=== PATIENT | male | born 1940 | race Caucasian/White ===

== ENCOUNTER 2017-02-04 05:06 | Inpatient (IN) | payer MEDICARE, BC ==
[2017-01-23 14:40] LABS: HEMATOCRIT 46.7 % (40.0-51.0); HEMOGLOBIN 15.8 g/dL (13.6-17.8); MEAN CORPUS HGB CONC 33.8 g/dL (32.0-36.0); MEAN CORPUSCULAR HEMOGLOB 29.1 pg (26.0-34.0); MEAN PLATELET VOLUME 12.6 fL (9.2-13.0); PLATELET COUNT 124 10/3/uL (150-400); RBC DISTRIBUTION WIDTH 14.2 % (12.0-16.0); RED CELL COUNT 5.43 10/6/uL (4.7-6.1)
[2017-01-23 14:42] LABS: MANUAL DIFF YES %
[2017-01-23 14:51] LABS: INTERNATIONAL NORMAL RATI 1.1 UNITS (-); PROTIME (NOT ORD) 13.9 SEC (12.0-14.5)
[2017-01-23 14:57] LABS: A/G RATIO 1.3 (0.7-1.9); ALBUMIN 3.7 G/DL (3.5-5.0); ALKALINE PHOSPHATASE 171 U/L (45-117); BUN (BLOOD UREA NITROGEN) 22 MG/DL (6-23); CALCIUM, SERUM 8.7 MG/DL (8.5-10.4); CHLORIDE, SERUM 105 MMOL/L (96-112); CO2 (CARBON DIOXIDE) 24 MMOL/L (24-34); CREATININE 1.15 MG/DL (0.70-1.30); GFR AFRICAN AMERICAN 70 ML/MIN (>=60); GFR NON AFRICAN AMERICAN 61 ML/MIN (>=60); GLOBULIN 2.9 G/DL (2.5-4.1); GLUCOSE, SERUM 347 MG/DL (60-99); POTASSIUM, SERUM 4.5 MMOL/L (3.5-5.3); SGOT(AST) 17 U/L (5-40); SGPT(ALT) 23 U/L (5-65); SODIUM, SERUM 142 MMOL/L (135-148); TOTAL BILIRUBIN 0.8 MG/DL (0-1.2); TOTAL PROTEIN 6.6 G/DL (6.0-8.5)
[2017-01-23 15:05] LABS: ASCORBIC ACID (UR NOT ORDER) NEG (NEG); BILIRUBIN, URINE NEGATIVE (NEG); KETONE, URINE NEGATIVE (NEG); LEUKOCYTE ESTERASE(NOT OR NEG (NEG); WBC (NOT ORDERED) (RFLEX) < 1 (0-5)
[2017-01-23 15:42] LABS: EOSINOPHILS 2 %; LYMPHOCYTES 64 %; MONOCYTES 3 %; SEGMENTED NEUTROPHIL (0) 31 %; TOTAL NUCLEATED CELLS 100
[2017-01-23 15:43] LABS: PLATELET ESTIMATE SLT DEC (ADEQUATE); RBC MORPHOLOGY NORM (NORMAL)
--- NOTE | ~2017-02-04 | DS ---
Discharge Summary [facility] [address] [place]. [address] NAME: Dulce ANTON JR : 36 STATUS : DIS IN PAT#: [id number] AGE: 76 ADM/REG DATE : 02/04/17 MR#: [id number] REPORT SERV DATE: 02/14/17 DICTATED BY: GURMEET SEALS DATE: 02/13/17 REPORT STATUS : Draft TRANSCRIBED BY: EMELY DATE: 02/13/17 Data Collection from hospitalization DISCHARGE DIAGNOSES: 1. Severe right hip degenerative joint disease. 2. Diabetes mellitus. 3. Chronic lymphocytic leukemia. 4. Obstructive sleep apnea. CONSULTATIONS: None. PROCEDURES PERFORMED: Uncemented total hip arthroplasty Tri-Lock 02/04/2017. PATHOLOGY: Right femoral head arthroplasty. No evidence of an infectious or neoplastic process. MEDICATIONS: Colace 100 mg twice daily, Pepcid 20 mg twice daily, ferrous sulfate 300 mg with breakfast and supper, Lantus SoloSTAR 20 units before supper, Theragran tablet without minerals one with breakfast, Flomax 0.4 mg at 1800 hours, Coumadin as directed, Mylanta 30 mL as needed, Dulcolax 15 mg as needed, [place] 7.5/325 one every 4 hours as needed, milk of magnesia 30 mL as needed, Zofran 4 mg every four hours as needed, MiraLAX powder one packet twice daily as needed, and Metaglip one before breakfast. CONDITION AT DISCHARGE: Upon discharge, he did appear to be doing well and had no complaints. DISPOSITION: He had been discharged with transfer to [facility] in [place], [place], to continue an 1800-calorie ADA diet with activity as discussed. He was to follow up as directed. HOSPITAL COURSE: This 76-year-old male who has leukemia was seen in the clinic with complaints of [id number] constant right hip pain for 5 years which was the approximate date of onset. He stated that his pain was not due to an accident or injury. He does use the cane as an assistive device. The location of his hip pain was anterior and in the groin and posterior. His symptoms included weakness, giving way, pain, stiffness, and radiation. His pain was intensified with activity. His history and treatment included heat with relief and Aleve with relief. He denied any prior physical therapy or injections. He was now admitted for surgery and further treatment. Upon admission to the hospital, he had been taken to the operating room where he did undergo the above procedure. He had tolerated this well and was transferred to the recovery room. On postop day 1, he did state that he did not feel well and had complaints of nausea and dizziness. He was afebrile and his vital signs were stable. His INR was at 1.4. He had been evaluated by Physical Therapy. On postop day 2, his WBCs were at 42.5, hemoglobin 9.2, and hematocrit 27.6. He was continued on his current medications. On postop day 3, he did remain in stable condition and had continued with physical therapy. He had no new complaints noted and was then discharged with the above instructions. Information collected by: Gio BritoIGaurav Discharge Summary [address] [place]. [address] NAME: DESENADulce JR : 36 STATUS : DIS IN PAT#: [id number] AGE: 76 ADM/REG DATE : 02/04/17 MR#: [id number] REPORT SERV DATE: 02/14/17 DICTATED BY: GURMEET SEALS DATE: 02/13/17 REPORT STATUS : Draft TRANSCRIBED BY: EMELY DATE: 02/13/17 I submit the above information as my discharge summary. DOUG/EMELY Shu Seals M.D. / [id number] CC: Gregoria Beaulieu MD [facility]
--- NOTE | ~2017-02-04 | OP ---
Record Of Operation [facility] [address] [place]. [address] NAME: Dulce ANTON JR : 36 STATUS : ADM IN PAT#: [id number] AGE: 76 ADM/REG DATE : 02/04/17 MR#: [id number] REPORT SERV DATE: 02/05/17 DICTATED BY: GURMEET SEALS DATE: 02/05/17 REPORT STATUS : Draft TRANSCRIBED BY: EMELY DATE: 02/05/17 DATE OF PROCEDURE: 02/04/2017 PREOPERATIVE DIAGNOSIS: Severe right hip degenerative joint disease. POSTOPERATIVE DIAGNOSIS: Severe right hip degenerative joint disease. PROCEDURE: Uncemented total hip arthroplasty, Tri-Lock. SIDE: Right MILK HAULER: ANESTHESIA: See chart. SIZE: See chart. ESTIMATED BLOOD LOSS: About 100 mL. INDICATIONS FOR SURGERY: PROCEDURE IN DETAIL: The patient was taken to the operating room and placed supine on the table without incident. Anesthetic was induced per the anesthesiologist. A Marquez catheter was placed by the nurse in the standard sterile technique. The correct side for the procedure was identified by preoperative markings and matched with the consent form. All personnel in the room were in agreement regarding the procedure, patient, and side. The patient was then carefully positioned and carefully padded and prepped and draped in the normal sterile fashion. The patient received prophylactic preoperative antibiotics at the appropriate time. The preoperative x-ray was brought up on the monitor. Again, this was reviewed with the staff in the room. According with the preoperative plan, and angled, an anterolateral incision was made centered over the trochanter extending from proximal posterior to distal anterior. Electrocautery was used to maintain meticulous hemostasis. The IT band was split in line with its fibers. A Charnley retractor was placed over saline moistened laps. A standard anterolateral approach to the hip was carried out dissecting in line with the vastus medialis fibers lifting the inferior 20% of the vastus medialis, proximally the interior 20% of the gluteus medius and gluteus minimus tendons off the anterior capsule. Periosteal elevator was used to elevate soft tissue gently directly off the proximal anterior femoral bone. Appropriate retractors were carefully placed. Complete anterior capsulectomy was performed. The hip was then carefully dislocated with a combination of traction maneuver by the budget assistant and scooping the ball out of the socket with a Hohmann. A femoral neck osteotomy was marked according to what had been preoperatively planned with a broach as a template. The distance for the femoral neck osteotomy was measured with a ruler. A femoral neck osteotomy was made with an oscillating saw under appropriate retraction. Meticulous hemostasis was again obtained. The leg was then brought up out of the anterior bag and Record Of Operation [facility] [id number] [place]. [address] NAME: Dulce ANTON : 38 STATUS : ADM IN PAT#: [id number] AGE: 76 ADM/REG DATE : 02/04/17 MR#: [id number] REPORT SERV DATE: 02/05/17 DICTATED BY: GURMEET SEALS DATE: 02/05/17 REPORT STATUS : Draft TRANSCRIBED BY: EMELY DATE: 02/05/17 positioned with the lower extremity in external rotation and slight flexion. Acetabular retractors were placed carefully palpating to be sure that they were directly on the bone. The acetabular labrum was excised with electrocautery and rongeur. Pulvinar fat was removed with a large curette and rongeur and again meticulous hemostasis was obtained. Sequential reamers were used in the acetabulum to 1 mm. less than the final size which was chosen. This was felt to give excellent interference fit. The acetabular fossa was then copiously irrigated with pulsatile lavage and actual acetabular component was placed and impacted and checked to make sure it was down snug. The overall alignment was checked. The acetabular elastic tape inserter was then removed. Screws were placed in the standard fashion. A drill, depth gauge and self tapping screw placement taking care not to plunge as the drill holes were carefully placed. A trial liner was then placed and attention directed back to the proximal femur. The leg was placed back into the anterior bag. The proximal femur was prepared using a box chisel following by a T-handled reamer to determine the intramedullary alignment. This was followed by sequential broaches up to the final broach. Once it was seated in the appropriate position, a Calcar reamer was used to plane the proximal femur. Trial reduction was then done with a trial prosthetic ball and neck. A straight edge was used to compare the tip of the trochanter to center of the ball relationship to what had been noted on the preoperative x-ray. Careful reduction was then done of the total hip. Palpation was done to ascertain and compare leg lengths by palpating the nonoperative leg and also by checking soft tissue tension. The stability of the hip was checked in full extension with full external rotation and in full flexion with adduction, flexion and internal rotation. The hip was then re-dislocated with a bone hook. The femoral trial and femoral broach were removed. The acetabulum was then prepared under appropriate retraction by removing the trial liner. A central hole eliminator was placed and tightened. The shell was irrigated out. The actual insert was placed and impacted and then checked to be sure it was down snug with a joker. The leg was again positioned in the bag. The proximal femur exposed, irrigated and the actual thermal prosthesis was taken from the credit and collections representative and impacted. Once it was down, the trunnion was cleansed with a wet and dry lap and the prosthetic thermal head was placed and impacted and checked to be sure it was down snug. The acetabulum was irrigated and reduction was obtained. Again, we checked soft tissue tension, leg length and stability as described above. The hip was closed in a layered fashion with a 5 mm. Mersilene tape placed through a single drill hole in the proximal anterior/superior trochanter reattaching the gluteus medius and minimus fibers. The vastus lateralis, gluteus medius, and gluteus minimus were then closed in a sleeve. Drain was placed between the vastus and the IT band exiting distally anteriorly. The IT band was closed. Subcutaneous closure and skin closure were then obtained. A sterile dressing was applied. The patient was carefully positioned into a supine position and then awakened. The patient was then carefully transferred to the stretcher to be returned to the postoperative care unit without incident. COMPLICATION: None. SPECIMENS: Right femoral head. Record Of Operation [address] [place]. [address] NAME: Dulce ANTON JR : 36 STATUS : ADM IN [facility]#: [id number] AGE: 76 ADM/REG DATE : 02/04/17 MR#: [id number] REPORT SERV DATE: 02/05/17 DICTATED BY: GURMEET SEALS DATE: 02/05/17 REPORT STATUS : Draft TRANSCRIBED BY: MODLucretia DATE: 04/26/17 WTB/MODL Shu Seals M.D. / [id number] CC: Gregoria Beaulieu MD
[~2017-02-04 05:06] MED LIST: LANTUSCART SC; METAGLIP1 TA1 PO; T PO
[2017-02-05 05:41] LABS: HEMATOCRIT 33.9 % (40.0-51.0); HEMOGLOBIN 11.1 g/dL (13.6-17.8)
[2017-02-05 05:45] LABS: INTERNATIONAL NORMAL RATI 1.4 UNITS (-)
[2017-02-05 05:46] LABS: PROTIME (NOT ORD) 16.9 SEC (12.0-14.5)
[2017-02-05 05:51] LABS: CALCIUM, SERUM 8.1 MG/DL (8.5-10.4); CHLORIDE, SERUM 108 MMOL/L (96-112); CO2 (CARBON DIOXIDE) 24 MMOL/L (24-34); CREATININE 1.12 MG/DL (0.70-1.30); GFR AFRICAN AMERICAN 73 ML/MIN (>=60); GFR NON AFRICAN AMERICAN 63 ML/MIN (>=60); POTASSIUM, SERUM 4.8 MMOL/L (3.5-5.3); SODIUM, SERUM 142 MMOL/L (135-148)
[2017-02-05 05:52] LABS: BUN (BLOOD UREA NITROGEN) 30 MG/DL (6-23); GLUCOSE, SERUM 253 MG/DL (60-99)
[2017-02-06 06:09] LABS: BUN (BLOOD UREA NITROGEN) 33 MG/DL (6-23); CHLORIDE, SERUM 109 MMOL/L (96-112); CO2 (CARBON DIOXIDE) 23 MMOL/L (24-34); CREATININE 1.03 MG/DL (0.70-1.30); GFR AFRICAN AMERICAN 80 ML/MIN (>=60); GFR NON AFRICAN AMERICAN 69 ML/MIN (>=60); POTASSIUM, SERUM 4.5 MMOL/L (3.5-5.3); SODIUM, SERUM 142 MMOL/L (135-148)
[2017-02-06 06:11] LABS: GLUCOSE, SERUM 184 MG/DL (60-99)
[2017-02-06 06:12] LABS: INTERNATIONAL NORMAL RATI 1.7 UNITS (-); PROTIME (NOT ORD) 19.7 SEC (12.0-14.5)
[2017-02-06 06:23] LABS: HEMOGLOBIN 9.2 g/dL (13.6-17.8); MEAN CORPUS HGB CONC 33.3 g/dL (32.0-36.0); MEAN CORPUSCULAR HEMOGLOB 28.7 pg (26.0-34.0); MEAN PLATELET VOLUME 12.2 fL (9.2-13.0); PLATELET COUNT 130 10/3/uL (150-400); RBC DISTRIBUTION WIDTH 14.3 % (12.0-16.0)
[2017-02-06 06:24] LABS: HEMATOCRIT 27.6 % (40.0-51.0); RED CELL COUNT 3.21 10/6/uL (4.7-6.1); WHITE BLOOD CELLS 42.5 10/3/uL (4.5-10.5)
[2017-02-06 06:26] LABS: MANUAL DIFF YES %
[2017-02-06 06:32] LABS: LYMPHOCYTES 66 %; LYMPHOCYTES ABSOLUTE (CALC) 28.05 10/3/uL (0.67-4.30); MONOCYTES 5 %; MONOCYTES ABSOLUTE (CALC) 2.13 10/3/uL (0.21-1.20); NEUTROPHILS ABSOLUTE (CALC) 12.33 10/3/uL (2.02-8.40); SEGMENTED NEUTROPHIL (0) 29 %; TOTAL NUCLEATED CELLS 100
[2017-02-06 06:33] LABS: ATYPICAL LYMPH MOD (6-10%) (0-5%); PLATELET ESTIMATE SLT INC (ADEQUATE); RBC MORPHOLOGY NORM (NORMAL)
[2017-02-07 05:37] LABS: INTERNATIONAL NORMAL RATI 2.3 UNITS (-)
[2017-02-07 05:44] LABS: HEMATOCRIT 25.8 % (40.0-51.0); HEMOGLOBIN 8.3 g/dL (13.6-17.8)
[2017-02-07 09:48] LABS: HEMATOCRIT 26.2 % (40.0-51.0); HEMOGLOBIN 8.7 g/dL (13.6-17.8); MEAN CORPUS HGB CONC 33.2 g/dL (32.0-36.0); MEAN CORPUSCULAR HEMOGLOB 28.9 pg (26.0-34.0); MEAN PLATELET VOLUME 11.3 fL (9.2-13.0); PLATELET COUNT 141 10/3/uL (150-400); RBC DISTRIBUTION WIDTH 14.3 % (12.0-16.0); RED CELL COUNT 3.01 10/6/uL (4.7-6.1)
[2017-02-07 09:49] LABS: MANUAL DIFF YES %; WHITE BLOOD CELLS 33.7 10/3/uL (4.5-10.5)
[2017-02-07 10:08] LABS: BAND NEUTROPHILS 1 %; LYMPHOCYTES 74 %; LYMPHOCYTES ABSOLUTE (CALC) 24.94 10/3/uL (0.67-4.30); MONOCYTES 1 %; MONOCYTES ABSOLUTE (CALC) 0.34 10/3/uL (0.21-1.20); NEUTROPHILS ABSOLUTE (CALC) 8.43 10/3/uL (2.02-8.40); SEGMENTED NEUTROPHIL (0) 24 %; TOTAL NUCLEATED CELLS 100
[2017-02-07 10:12] LABS: PLATELET ESTIMATE SLT DEC (ADEQUATE)
[2017-02-07 10:13] LABS: RBC MORPHOLOGY NORM (NORMAL); SMUDGE CELLS FEW
== END 2017-02-07 17:00 | DRG 470 ==
LOC: SDC/OF 05:06 → PACU 09:06 → 3JRC 10:08
PROVIDERS: Specialist
PROC: 0SR902A Replacement of Right Hip Joint with Metal on Polyethylene Synthetic Substitute, Uncemented, Open Approach (ICD-10-PCS; principal; 2017-02-04 06:30)
DX: M16.11 Unilateral primary osteoarthritis, right hip (principal); C91.10 Chronic lymphocytic leukemia of B-cell type not having achieved remission; E11.65 Type 2 diabetes mellitus with hyperglycemia; D62 Acute posthemorrhagic anemia; R42 Dizziness and giddiness; R11.0 Nausea; I95.81 Postprocedural hypotension; R25.1 Tremor, unspecified; Z88.5 Allergy status to narcotic agent; Z88.6 Allergy status to analgesic agent; Z79.4 Long term (current) use of insulin; Z79.899 Other long term (current) drug therapy; G47.33 Obstructive sleep apnea (adult) (pediatric); Z87.442 Personal history of urinary calculi; E78.5 Hyperlipidemia, unspecified
CPT/HCPCS: 36415; 71020; 72170; 80048; 80053; 81001; 82962; 85014; 85018; 85025; 85610; 86850; 86900; 86901; 87641; 88304; 88311; 93005; 97110-GP; 97116-GP; 97150-GP; 97162-GP; 97164-GP; 97165-GO; 97535-GO; A9270-GY; C1713; C1776; G8987-CK-GO; G8988-CJ-GO; J0690; J1885; J2274; J2405; J2710; J2795; J3010